=== PATIENT | female | born 1940 | race Caucasian/White ===

== ENCOUNTER 2023-07-09 16:02 | Emergency (ER) | payer MEDICARE, OTHER ==
[2023-07-09 16:08] VITALS: BP 126/54; PULSE 71
[2023-07-09] MEDS ORDERED: Sodium Chloride 0.9% 10 ML Syringe FLUSH PRN (17:25)
[2023-07-09] MEDS: Sodium Chloride 0.9% 500 ML IV SCH (17:37)
[2023-07-09] MEDS: Iopamidol 755 Mg/ML 100 ML Bottle IVPUSH STA (18:03)
== END 2023-07-09 19:20 | disposition home or self-care (01) ==
LOC: LL.ED 16:02
DX: U07.1 COVID-19 (principal); I13.0 Hypertensive heart and chronic kidney disease with heart failure and stage 1 through stage 4 chronic kidney disease, or unspecified chronic kidney disease; E78.00 Pure hypercholesterolemia, unspecified; N18.4 Chronic kidney disease, stage 4 (severe); I50.9 Heart failure, unspecified; E11.22 Type 2 diabetes mellitus with diabetic chronic kidney disease; Z79.84 Long term (current) use of oral hypoglycemic drugs; Z79.82 Long term (current) use of aspirin; Z79.899 Other long term (current) drug therapy
CPT/HCPCS: 71275; 96360; 99285-25; J7040; Q9967

== ENCOUNTER 2023-11-21 09:26 | Emergency (ER) | payer MEDICARE, OTHER ==
[2023-11-21 09:29] VITALS: BP 148/87; PULSE 71
[2023-11-21] MEDS ORDERED: Sodium Chloride 0.9% 10 ML Syringe FLUSH PRN (10:00)
[2023-11-21 10:15] LABS: BASOPHILS ABSOLUTE AUTO 0.01 K/uL (0.00-0.20); BASOPHILS PERCENT AUTO 0.2 % (0.0-2.0); EOSINOPHILS ABSOLUTE AUTO 0.09 K/uL (0.00-0.50); EOSINOPHILS PERCENT AUTO 1.6 % (0.0-5.0); HEMATOCRIT 40.9 % (34.0-46.0); HEMOGLOBIN 13.8 g/dL (11.7-15.5); LYMPHOCYTES PERCENT AUTO 20.7 % (10.0-50.0); MEAN CORPUSCULAR HEMOGLOBIN 29.8 pg (28.2-33.3); MEAN CORPUSCULAR HGB CONC 33.7 g/dL (31.7-36.0); MEAN CORPUSCULAR VOLUME 88.3 fL (84.0-98.0); MONOCYTES ABSOLUTE AUTO 1.16 K/uL (0.00-1.00); NEUTROPHILS ABSOLUTE AUTO 3.33 K/uL (1.40-7.00); NEUTROPHILS PERCENT AUTO 57.5 % (45.0-80.0); PLATELET COUNT,PLT 142 K/uL (150-350); RED BLOOD CELL COUNT 4.63 M/uL (3.77-5.09); RED CELL DISTRIBUTION WIDTH 12.8 % (11.2-14.1); WHITE BLOOD CELL COUNT,WBC 5.8 K/uL (4.0-10.2)
[2023-11-21] MEDS: Loperamide 2 MG Tab PO ONE (10:29)
[2023-11-21] MEDS: Sodium Chloride 0.9% 1,000 ML IV ONE (10:29)
[2023-11-21 10:35] LABS: ALANINE AMINOTRANSFERASE,ALT 45 U/L (12-78); ALBUMIN 3.7 g/dL (3.4-5.0); ALKALINE PHOSPHATASE 71 IU/L (46-116); ANION GAP 14.2 meq/L (7-15); ASPARTATE AMNIOTRANSFERASE,AST 32 U/L (15-37); BILIRUBIN TOTAL 0.5 mg/dL (0.2-1.0); BLOOD UREA NITROGEN,BUN 30 mg/dL (7-18); CALCIUM 8.6 mg/dL (8.5-10.1); CARBON DIOXIDE,CO2 26.1 mmol/L (21.0-32.0); CHLORIDE,CL 107 mmol/L (98-107); CREATININE 1.47 mg/dL (0.51-1.17); ESTIMATED GFR 35 mL/min (>=60); GLUCOSE RANDOM 121 mg/dL (70-99); MAGNESIUM 2.2 mg/dL (1.8-2.4); POTASSIUM,K 3.3 mmol/L (3.5-5.1); PROTEIN TOTAL,TP 6.7 g/dL (6.4-8.2); SODIUM,NA 144 mmol/L (136-145)
[2023-11-21 10:36] LABS: CORONAVIRUS COVID-19 NAA NEGATIVE (NEGATIVE); INFLUENZA A NAA NEGATIVE (NEGATIVE); INFLUENZA B NAA NEGATIVE (NEGATIVE); RESPIRATORY SYNCYTIAL VIR NAA NEGATIVE (NEGATIVE)
[2023-11-21] MEDS: Potassium Bicarbonate/Cit Ac 20 MEQ Effervescent Tab PO ONE ×2 (11:29→12:21)
[2023-11-21 11:56] LABS: APPEARANCE,URINE SLIGHTLY CLOUDY; BILIRUBIN,URINE NEGATIVE (NEGATIVE); COLOR,URINE YELLOW; GLUCOSE,URINE NEGATIVE (NEGATIVE); KETONES,URINE TRACE mg/dL (NEGATIVE); LEUKOCYTE ESTERASE,URINE TRACE (NEGATIVE); NITRITE,URINE NEGATIVE (NEGATIVE); OCCULT BLOOD,URINE TRACE-INTACT (NEGATIVE); PROTEIN,URINE NEGATIVE (NEGATIVE); UROBILINOGEN,URINE 0.2 E.U./dL (0.2-1.0)
[2023-11-21 12:05] LABS: EPITHELIAL CELLS,URINE FEW /LPF; RBC,URINE 0-5 /HPF; WBC,URINE 0-5 /HPF
[2023-11-21 12:06] LABS: BACTERIA,URINE FEW /HPF (NONE TO FEW); MUCUS,URINE FEW /LPF (NEGATIVE)
== END 2023-11-21 13:00 | disposition home or self-care (01) ==
LOC: LL.ED 09:26
DX: K52.9 Noninfective gastroenteritis and colitis, unspecified (principal); E86.0 Dehydration; E87.6 Hypokalemia; I11.0 Hypertensive heart disease with heart failure; I50.9 Heart failure, unspecified; E11.9 Type 2 diabetes mellitus without complications; E78.00 Pure hypercholesterolemia, unspecified; Z88.0 Allergy status to penicillin; Z88.8 Allergy status to other drugs, medicaments and biological substances; Z79.82 Long term (current) use of aspirin; Z79.899 Other long term (current) drug therapy
CPT/HCPCS: 0241U; 36415; 74018; 80053; 81001; 83605; 83735; 85025; 87086; 96360; 96361; 99284-25; A9270-GY; J7030